=== PATIENT | female | born 1965 | race Caucasian/White ===

== ENCOUNTER 2022-06-20 01:02 | Emergency (ER) | payer OTHER ==
[~2022-06-20] VITALS: Ht 170.2 cm; Wt 83.9 kg
[~2022-06-20 01:02] MED LIST: BACTRIM 400-801 TAB PO; METROGEL TP; PHENERGAN25 MG PO; PROTONIX40 MG PO
[2022-06-20] MEDS ORDERED: LEVO-T25 MCG (01:13)
[2022-06-20] MEDS ORDERED: LOSARTAN-HCTZ1 EACH (01:13)
[2022-06-20] MEDS ORDERED: ZESTRIL20 MG PO (05:48)
== END 2022-06-20 06:01 ==
LOC: ER 01:02
DX: I10 Essential (primary) hypertension (principal)

== ENCOUNTER 2022-07-28 11:14 | Emergency (ER) | payer OTHER ==
[~2022-07-28] VITALS: Ht 170.2 cm; Wt 83.9 kg
[~2022-07-28 11:14] MED LIST changes: +LEVO-T25 MCG; +LOSARTAN-HCTZ1 EACH; +ZESTRIL20 MG PO
[2022-07-28] MEDS ORDERED: HYDROCHLOROTHIA25 MG PO (11:47)
[2022-07-28] MEDS ORDERED: NIFEDIPINE ER60 M1 PO (11:47)
[2022-07-28] MEDS ORDERED: ATORVASTATIN CA40 MG PO (11:47)
== END 2022-07-28 14:31 | disposition home or self-care (01) ==
LOC: ER 11:14
DX: R00.2 Palpitations (principal); I10 Essential (primary) hypertension